=== PATIENT | female | born 1990 | race Native Hawaiian/Other Pacific Islander ===

== ENCOUNTER 2022-08-29 12:30 | Inpatient (IN) | payer OTHER ==
[2022-08-23 09:37] VITALS: BMI 47.6
[2022-09-05] MEDS ORDERED: PROMETHAZINE HCL 25 MG/1 ML VIAL IVPB PRN (13:20)
[2022-09-05] MEDS ORDERED: ONDANSETRON 4 MG/2 ML VIAL IVPUSH PRN ×2 (13:20→17:02)
[2022-09-05] MEDS ORDERED: LACTATED RINGERS SOLUTION 1,000 ML IV SCH (13:30)
[2022-09-05] MEDS ORDERED: ROCURONIUM BROMIDE 50 MG/5 ML SYRINGE ONE ×2 (13:51→15:33)
[2022-09-05] MEDS ORDERED: MIDAZOLAM HCL 2 MG/2 ML SINGLE DOSE VIAL ONE (13:52)
[2022-09-05] MEDS ORDERED: PROPOFOL 20 ML ONE ×3 (13:52→16:46)
[2022-09-05] MEDS ORDERED: SODIUM CHLORIDE 0.9% P/F 10 ML VIAL IJ ONE (13:53)
[2022-09-05] MEDS ORDERED: ceFAZolin SODIUM 1 GM VIAL ONE ×2 (13:53→14:39)
[2022-09-05] MEDS ORDERED: LIDOCAINE HCL/PF 2% SDV 5ML VIAL ONE (13:53)
[2022-09-05] MEDS ORDERED: BUPIVACAINE HCL/PF 2.5 MG/ML - 30 ML VIAL IJ ONE (14:13)
[2022-09-05] MEDS ORDERED: DEXAMETHASONE SOD PHOSPHATE 4 MG/1 ML VIAL ONE ×2 (14:42→16:55)
[2022-09-05] MEDS ORDERED: METOPROLOL TARTRATE 5 MG/5 ML VIAL ONE (15:42)
[2022-09-05] MEDS ORDERED: GLYCOPYRROLATE 0.2 MG/1 ML VIAL ONE (16:38)
[2022-09-05] MEDS ORDERED: NEOSTIGMINE METHYLSULFATE 0.5 MG/1 ML - 10 ML MDV ONE (16:38)
[2022-09-05] MEDS ORDERED: ONDANSETRON 4 MG/2 ML VIAL ONE (16:55)
[2022-09-05] MEDS ORDERED: HYDROmorphone HCL 2 MG TABLET PO PRN (17:06)
[2022-09-05] MEDS ORDERED: HYDROmorphone HCl 2 MG/ML VIAL IVPB PRN (17:08)
[2022-09-05] MEDS ORDERED: SODIUM CHLORIDE 1,000 ML IV SCH (17:15)
[2022-09-05] MEDS ORDERED: FENTANYL CITRATE/PF 50 MCG/ML VIAL ONE (17:40)
[2022-09-05] MEDS ORDERED: ACETAMINOPHEN INJECTION 100 ML IVPB ONE (17:42)
[2022-09-05 17:43] LABS: HEMATOCRIT 34.4 % (32.4-45.2); HEMOGLOBIN 11.8 G/dL (10.7-15.3); MCH 28.9 pg (25.7-33.7); MCHC 34.4 g/dl (32.0-36.0); MEAN CELL VOLUME 83.9 fl (80-96); MEAN PLT VOLUME 8.4 fl (7.5-11.1); PLATELET COUNT 277.4 10^3/uL (134-434); WHITE BLOOD COUNT 14.1 10^3/uL (4.0-10.8)
[2022-09-05] MEDS: ACETAMINOPHEN 1000 MG/100 ML BAG IVPB PRN (17:44)
[2022-09-05 17:58] LABS: ALBUMIN 3.5 g/dl (3.4-5.0); BILIRUBIN,TOTAL 0.5 mg/dl (0.2-1); CALCIUM 8.2 mg/dl (8.5-10); CREATININE 0.6 mg/dl (0.55-1.3); TOT PROT 7.1 g/dl (6.4-8.2)
[2022-09-05] MEDS: METOCLOPRAMIDE HCL INJECTION 10 MG/2 ML VIAL IVPUSH SCH ×2 (18:52→23:08)
[2022-09-05] MEDS: HYDROmorphone HCl 2 MG/ML VIAL IVPB PRN (20:26)
[2022-09-05 20:53] VITALS: RESP 17
[2022-09-05] MEDS: FAMOTIDINE 20 MG/50 ML IVPB 20 MG/50 ML MG IVPB SCH (21:16)
[2022-09-06] MEDS: ACETAMINOPHEN 1000 MG/100 ML BAG IVPB PRN (01:23)
[2022-09-06] MEDS: HYDROmorphone HCl 2 MG/ML VIAL IVPB PRN (04:00)
[2022-09-06] MEDS: METOCLOPRAMIDE HCL INJECTION 10 MG/2 ML VIAL IVPUSH SCH ×2 (06:08→11:59)
[2022-09-06 07:58] LABS: HEMATOCRIT 33.4 % (32.4-45.2); HEMOGLOBIN 11.5 G/dL (10.7-15.3); MCH 28.5 pg (25.7-33.7); MCHC 34.4 g/dl (32.0-36.0); MEAN PLT VOLUME 8.6 fl (7.5-11.1); PLATELET COUNT 260.1 10^3/uL (134-434); RBC 4.03 10^6/uL (3.60-5.2); RDW 15.7 % (11.6-15.6); WHITE BLOOD COUNT 12.8 10^3/uL (4.0-10.8)
[2022-09-06 08:05] LABS: ALBUMIN 3.3 g/dl (3.4-5.0); BILIRUBIN,TOTAL 0.7 mg/dl (0.2-1); CALCIUM 8.2 mg/dl (8.5-10); CREATININE 0.5 mg/dl (0.55-1.3); TOT PROT 6.9 g/dl (6.4-8.2)
[2022-09-06 08:38] VITALS: PULSE 78
[2022-09-06] MEDS ORDERED: oxyCODONE HCL 5 MG TABLET PO PRN (09:30)
[2022-09-06] MEDS ORDERED: ACETAMINOPHEN 325 MG TABLET (FP) PO PRN (09:30)
[2022-09-06] MEDS ORDERED: SODIUM CHLORIDE 1,000 ML IV SCH (09:30)
[2022-09-06] MEDS: FAMOTIDINE 20 MG/50 ML IVPB 20 MG/50 ML MG IVPB SCH (09:59)
[2022-09-06 13:42] VITALS: BP 130/82; TEMP 98.1
== END 2022-09-06 13:54 | disposition home or self-care (01) | DRG 621 ==
LOC: FM/S 09-05 11:15 → UNDOADMIN 09-05 11:15
PROVIDERS: ADMIT Surgery; ATTEND Surgery
PROC: 0FB24ZX Excision of Left Lobe Liver, Percutaneous Endoscopic Approach, Diagnostic (ICD-10-PCS; 2022-09-05)
PROC: 0DB64Z3 Excision of Stomach, Percutaneous Endoscopic Approach, Vertical (ICD-10-PCS; principal; 2022-09-05 14:53)
DX: E66.01 Morbid (severe) obesity due to excess calories (principal); R16.0 Hepatomegaly, not elsewhere classified; Z68.42 Body mass index [BMI] 45.0-49.9, adult
CPT/HCPCS: 36415; 74240-TC-FY; 80053; 84703; 85027; 86850; 86900; 86901; 88307-TC; 94760